=== PATIENT | male | born 1940 | race Caucasian/White ===

== ENCOUNTER 2022-07-27 07:43 | Day surgery (SDC) | payer MEDICARE, BC ==
--- NOTE | 2022-07-26 08:55 | HP ---
DATE OF SURGERY: 07/27/2022 HISTORY OF PRESENT ILLNESS: The patient is an 82-year-old man who presents with history of sigmoid colon cancer and left colectomy in August 2021. He did have spread into his nodes. It looks like the patient took 12 cycles of chemo. He had some repeat scans with some mediastinal node. It looks like he had a PET scan and endobronchial ultrasound (EBUS) with Dr. Barboza. It looks like there is some thickening around the anastomosis on the PET scan. The patient needs a colonoscopy at this time anyway. PAST MEDICAL HISTORY: Colon cancer, diabetes, hyperlipidemia. PAST SURGICAL HISTORY: Left colectomy. ALLERGIES: NKDA. MEDICATIONS: Eliquis, Zofran, hydrocodone, metformin, Fenofibrate, triamcinolone. FAMILY HISTORY: None reported. SOCIAL HISTORY: None reported. REVIEW OF SYSTEMS: CONSTITUTIONAL: Denies fever or chills. CHEST: Denies shortness of breath. CVS: Denies chest pain. ABDOMEN: Has some abdominal pain. PHYSICAL EXAMINATION: GENERAL: No acute distress. CHEST: Nonlabored. No shortness of breath. CVS: Regular rate and rhythm. ABDOMEN: Soft. IMPRESSION: History of colon cancer and current abnormal PET scan. PLAN: Colonoscopy with Dr. Geoffrey Iraheta. As dictated by Wendi Wolfe NP.
[2022-07-27] MEDS ORDERED: Lactated Ringers 1,000 ML IV SCH (08:00)
[2022-07-27] MEDS ORDERED: Lactated Ringers 1,000 ML IV ONE (08:02)
[2022-07-27] MEDS ORDERED: DIPRIVAN 200 MG/20 ML IV ONE (09:43)
[2022-07-27] MEDS ORDERED: Xylocaine-Mpf 2% 5 Ml Vial ONE (09:43)
[2022-07-27] MEDS ORDERED: Versed 2 MG/2 ML Injection ONE (09:48)
[2022-07-27 10:54] VITALS: BP 154/85; PULSE 73; O2SAT 100
--- NOTE | 2022-07-27 14:38 | OP ---
SURGERY DATE/TIME: 07/27/2022 0946 PREOPERATIVE DIAGNOSIS: Follow up colon cancer and colon polyps. POSTOPERATIVE DIAGNOSIS: Two small colon polyps, 6 mm and 3 mm. PROCEDURE: Colonoscopy complete to cecum with hot polypectomy x2. SURGEON: Geoffrey Iraheta M.D. ANESTHESIA: MAC. COMPLICATIONS: None. CONDITION: Stable. INDICATION: A patient requiring evaluation. DESCRIPTION OF PROCEDURE: Patient taken to endoscopy. Left lateral decubitus position. Anal digital examination satisfactory. Prostate satisfactory. Scope introduced. The scope advanced to the cecum. Base of the cecum, ileocecal valve, appendiceal orifice all satisfactory. Ascending colon satisfactory. There was a 6 mm polyp in the mid ascending and this is taken with hot biopsy forceps. Transverse, the left colon had been removed. Splenic, descending all of that had been removed. Where the transverse came down and hooked onto the sigmoid anastomosis was normal. Going down the residual sigmoid a little bit. There was a 3 mm polyp taken with hot biopsy forceps to extinction. Rectum, anus moderate internal hemorrhoids. No diverticulosis. Normal anastomosis. The patient tolerated the procedure satisfactorily. Follow up in five years.
== END 2022-07-27 10:56 | disposition home or self-care (01) ==
LOC: SDC 07:43
PROVIDERS: ATTEND Surgery
DX: Z08 Encounter for follow-up examination after completed treatment for malignant neoplasm (principal); Z85.038 Personal history of other malignant neoplasm of large intestine; Z86.010 Personal history of colon polyps; D12.2 Benign neoplasm of ascending colon; K64.8 Other hemorrhoids
CPT/HCPCS: 99100; J2250; J2704